=== PATIENT | male | born 1970 | race Caucasian/White ===

== ENCOUNTER → 2018-11-28 | Outpatient (CLI) | payer OTHER ==
[~2018-11-28] MED LIST: ATOR40TA75 PO; GLIP10TA PO; IBUP-1022 PO; LISI-538 PO; METF500T13 PO; OMEP40CA2 PO; PARO40TA2 PO
--- NOTE | 2018-11-28 17:16 | REP ---
LEFT FOOT, FOUR VIEWS:HISTORY: Injury. There is no acute fracture or dislocation. The joint spaces are normal in appearance. IMPRESSION:There is no acute fracture or dislocation. Electronically Signed by Simone Gillespie MD 11/28/2018 05:26 P
--- NOTE | 2018-11-28 17:17 | REP ---
LEFT ANKLE, FIVE VIEWS: HISTORY: Injury. There is no acute fracture or dislocation. The joint space is normal in appearance. An osteophyte is present on the posterior calcaneus. IMPRESSION:There is no acute fracture or dislocation. Electronically Signed by Simone Gillespie MD 11/28/2018 05:26 P
== END ==
LOC: M LRY 15:41
PROVIDERS: ATTEND Nurse Practitioner Family
DX: M25.572 Pain in left ankle and joints of left foot (principal)

== ENCOUNTER 2020-01-09 16:12 | Inpatient (IN) | payer OTHER ==
[~2020-01-09] VITALS: Ht 172.7 cm; Wt 89.4 kg
[~2020-01-09 16:12] MED LIST changes: -GEMF600T5 PO; -GLIP5TAB8 PO; -INSULANT SC; -KEFL500C17 PO; -METF-838 PO; -OMEP-218 PO; -PERCOCET PO
[2020-01-09] MEDS ORDERED: INSULANT SC (16:20)
[2020-01-09] MEDS ORDERED: MORPHINE 10 MG/ML 1ML VIAL (J2270) IM ONE (16:45)
[2020-01-09 17:14] LABS: BASO % 0.4 % (0.0-1.0); EOS # 0.2 10^3/uL (0.0-0.5); EOS % 2.2 % (0.0-3.0); HEMATOCRIT 36.3 % (42.0-52.0); HEMOGLOBIN 12.2 g/dl (13.5-17.5); LYMPH # 1.7 10^3/uL (1.5-5.0); LYMPH % 16.7 % (24.0-44.0); MEAN CORPUSCULAR HEMOGLOBIN 28.5 pg (27.0-33.0); MEAN CORPUSCULAR HGB CONC 33.6 g/dl (32.0-36.5); MEAN CORPUSCULAR VOLUME 84.8 fl (80.0-96.0); MONO # 0.7 10^3/uL (0.0-0.8); MONO % 7.1 % (0.0-5.0); NEUTROPHILS # 7.2 10^3/uL (1.5-8.5); PLATELET COUNT, AUTOMATED 355 10^3/uL (150-450); RED BLOOD COUNT 4.28 10^6/uL (4.30-6.10); WHITE BLOOD COUNT 9.9 10^3/uL (4.0-10.0)
[2020-01-09] MEDS ORDERED: ceFAZolin SOD 2 GM in IV 1 EA IV ONE (17:30)
[2020-01-09] MEDS ORDERED: METF-838 PO (17:35)
[2020-01-09] MEDS ORDERED: OMEP-218 PO (17:35)
[2020-01-09] MEDS ORDERED: GEMF600T5 PO (17:35)
[2020-01-09] MEDS ORDERED: GLIP5TAB8 PO (17:35)
--- NOTE | 2020-01-09 17:48 | REPVR ---
PROCEDURE INFORMATION: Exam: US Scrotum Exam date and time: 01/09/2020 5:16 PM Age: 49 years old Clinical indication: Scrotum pain; trauma to the right testicle which is pinched between the legs. Additional info: R/O torsion. TECHNIQUE: Imaging protocol: Real-time ultrasound of the scrotum and contents with color Doppler and image documentation. COMPARISON: No relevant prior studies available. FINDINGS: Right testicle: The right testicle measures 5.2 x 1.8 x 3.3 cm. No mass. No torsion. Normal vascular flow. Left testicle: The left testicle measures 5.2 x 2.2 x 3.0 cm. No mass. No torsion. Normal vascular flow. Epididymides: The craniocaudal size of the head of the right epididymis measures 5 mm. The craniocaudal size of the head of the left epididymis measures 11 mm. The left epididymal head contains a small cyst containing echogenic debris measuring 3 x 4 x 3 mm in size. Scrotum: There is an approximate 4 x 3 x 3 cm area of irregularly-shaped low echogenicity which has some inflammatory-type increased vascularity on its margin in the scrotal soft tissues lateral to the right testicle which could be a subacute soft tissue hematoma. IMPRESSION: 1. Both testicles appear normal. No evidence of torsion or intratesticular injury. 2. A small 3 x 4 x 3 mm complex cyst is seen in the head of the left epididymis. 3. There is an approximate 4 x 3 x 3 cm area of irregularly-shaped low echogenicity which has some inflammatory-type increased vascularity on its margin in the scrotal soft tissues lateral to the right testicle which could be a subacute soft tissue hematoma. Electronically signed by: Robert Terrazas On 01/09/2020 17:47:41 PM
[2020-01-09] MEDS ORDERED: MORPHINE 2 MG/ML 1ML VIAL (J2270) IV PRN ×2 (18:00→19:15)
[2020-01-09] MEDS ORDERED: MIDAZOLAM INJ 2MG/2ML VIAL (J2250 PER 1MG) As Ordered ONE (18:25)
[2020-01-09] MEDS ORDERED: dexameTHASONE 4 MG/ML 1ML VIAL (J1100 PER 1MG) As Ordered ONE (18:25)
[2020-01-09] MEDS ORDERED: fentaNYL 100 MCG/2 ML INJECTION (J3010) As Ordered ONE ×2 (18:25→19:50)
[2020-01-09] MEDS ORDERED: propofoL 200 MG/20 ML VIAL As Ordered ONE (18:26)
[2020-01-09] MEDS ORDERED: ONDANSETRON 4MG/2ML VIAL As Ordered ONE (18:26)
[2020-01-09] MEDS ORDERED: PHENYLephrine HCL 500 MCG/5 ML (100MCG/ML) SYRINGE (J2370) As Ordered ONE (18:26)
[2020-01-09] MEDS ORDERED: KETOROLAC 60MG 2ML VIAL As Ordered ONE (18:26)
[2020-01-09] MEDS ORDERED: ePHEDrine SULFATE 25 MG/5 ML(5MG/ML) SYRINGE As Ordered ONE (18:26)
[2020-01-09] MEDS ORDERED: LIDOCAINE 2% 100MG/5ML SDV (FOR ANES.) As Ordered ONE (18:26)
[2020-01-09] MEDS ORDERED: BUPIVACAINE HCL 0.25% 30ML VIAL As Ordered ONE (18:28)
[2020-01-09] MEDS ORDERED: BACITRACIN OINTMENT 30GM TUBE As Ordered ONE (18:28)
[2020-01-09] MEDS ORDERED: GLUCOSE 4GM CHEW TABLET PO PRN (19:15)
[2020-01-09] MEDS ORDERED: DEXTROSE 50% 50 ML SYRINGE IV PRN (19:15)
[2020-01-09] MEDS ORDERED: ONDANSETRON 4MG/2ML VIAL IV PRN ×2 (19:15→21:15)
[2020-01-09] MEDS ORDERED: PERCOCET 5MG/325MG TAB PO PRN ×2 (19:15)
[2020-01-09] MEDS ORDERED: GLUCAGON INJ 1MG VIAL SC PRN (19:15)
[2020-01-09] MEDS: GENTAMICIN 80 MG in IV 1 EA IV SCH (21:09)
[2020-01-09] MEDS ORDERED: HYDROMORPHONE HCL 0.5 MG/ 0.5 ML SYRINGE (J1170 PER 1) IV PRN (21:15)
[2020-01-09] MEDS ORDERED: oxyCODONE 5MG TAB PO PRN (21:15)
[2020-01-09] MEDS ORDERED: LR 1,000 ML IV SCH (21:15)
[2020-01-09] MEDS ORDERED: fentaNYL 100 MCG/2 ML INJECTION (J3010) IV PRN (21:15)
[2020-01-09 22:15] VITALS: BP 110/70
[2020-01-09 22:45] VITALS: BP 108/70
[2020-01-09] MEDS: DOCUSATE SODIUM 100 MG CAP PO SCH (23:13)
[2020-01-09] MEDS: PARoxetine 20 MG TAB PO SCH (23:13)
[2020-01-09] MEDS: lisinopriL 10 MG TAB PO SCH (23:13)
[2020-01-09] MEDS: ATORVASTATIN 20 MG TAB PO SCH (23:13)
[2020-01-09] MEDS: VANCOMYCIN HCL 1,000 MG, VIAL MATE ADAPTER 1 EACH in D5W 250 ML IV SCH (23:14)
[2020-01-09] MEDS: HumaLOG INSULIN (NovoLOG) PER UNIT SC SCH (23:14)
[2020-01-09 23:15] VITALS: BP 108/71
[2020-01-09] MEDS: HEPARIN SOD (PORCINE) 5000UNITS/ML VIAL (J1644 PER 1000UNITS) SC SCH (23:15)
[2020-01-10] VITALS (11 sets, daily range): BP systolic 96–118; BP diastolic 64–72; O2SAT 87
[2020-01-10] MEDS: GENTAMICIN 80 MG in IV 1 EA IV SCH (05:37)
[2020-01-10] MEDS: HEPARIN SOD (PORCINE) 5000UNITS/ML VIAL (J1644 PER 1000UNITS) SC SCH ×3 (05:38→21:36)
[2020-01-10 06:16] LABS: HEMATOCRIT 36.2 % (42.0-52.0); MEAN CORPUSCULAR HEMOGLOBIN 28.2 pg (27.0-33.0); MEAN CORPUSCULAR HGB CONC 33.1 g/dl (32.0-36.5); MEAN CORPUSCULAR VOLUME 85.2 fl (80.0-96.0); PLATELET COUNT, AUTOMATED 348 10^3/uL (150-450); RED BLOOD COUNT 4.25 10^6/uL (4.30-6.10); WHITE BLOOD COUNT 13.9 10^3/uL (4.0-10.0)
[2020-01-10 06:41] LABS: BLOOD UREA NITROGEN 20 MG/DL (7-18); CALCIUM LEVEL 8.9 MG/DL (8.5-10.1); CARBON DIOXIDE LEVEL 23 MEQ/L (21-32); CHLORIDE LEVEL 104 MEQ/L (98-107); CREATININE FOR GFR 1.18 MG/DL (0.70-1.30); GLOMERULAR FILTRATION RATE > 60.0 (>60); GLUCOSE, FASTING 328 MG/DL (70-100); POTASSIUM SERUM 4.7 MEQ/L (3.5-5.1); SODIUM LEVEL 136 MEQ/L (136-145)
[2020-01-10] MEDS: HumaLOG INSULIN (NovoLOG) PER UNIT SC SCH ×4 (08:09→20:39)
[2020-01-10] MEDS: OMEPRAZOLE 20 MG CAP PO SCH (08:09)
[2020-01-10] MEDS: gemfibroziL 600 MG TAB PO SCH ×2 (08:09→17:17)
[2020-01-10] MEDS: DOCUSATE SODIUM 100 MG CAP PO SCH ×2 (08:09→21:35)
--- NOTE | 2020-01-10 09:20 | IPNPDOC ---
Subjective Review oF Systems Chief Complaint The patient is a 49-year-old male admitted with a reason for visit of Scrotal Hematoma. Events since Last Encounter No acute events o/n. Patient notes his pain is significantly improved compared to preop. He ambulated earlier w/o difficulty. No f/c/ns. Objective Physical Examination General Exam: Alert, Cooperative, No Acute Distress Neuro Exam: Normal Speech Psych Exam: Mental status NL, Mood NL Other physical findings right hemiscrotum w/ moderate edema and erythema - both improving; incision w/ christy drains in place and moderate serous drainage onto dressing o/n; mild tenderness to palpation; no crepitus Vital Signs/I&O Vital Signs Date Time Temp Pulse Resp B/P (MAP) Pulse Ox O2 Delivery O2 Flow Rate FiO2 01/10/20 06:00 97.5 70 18 98/67 (77) 94 Nasal Cannula 4.0 I&O- Last 24 Hours up to 6 AM 01/10/20 06:00 Intake Total 1505 ml Output Total 10 ml Balance 1495 ml Laboratory Data Labs 24H Laboratory Tests 2 01/09/20 16:46: Immature Granulocyte % (Auto) 0.6, Neutrophils (%) (Auto) 73.0H, Lymphocytes (%) (Auto) 16.7L, Monocytes (%) (Auto) 7.1H, Eosinophils (%) (Auto) 2.2, Basophils (%) (Auto) 0.4, Neutrophils # (Auto) 7.2, Lymphocytes # (Auto) 1.7, Monocytes # (Auto) 0.7, Eosinophils # (Auto) 0.2, Basophils # (Auto) 0.0, Nucleated Red Blood Cells % (auto) 0.0 01/09/20 16:51: POC Prothrombin Time (Misc) 15.6H, POC INR (Misc) 1.3 01/09/20 16:53: POC Glucose (Misc Panel) 191H, POC Sodium (Misc Panel) 139, POC Potassium (Misc Panel) 3.9, POC Chloride (Misc Panel) 102, POC Total CO2 (Misc Panel) 24.0, POC Blood Urea Nitrogen (Misc Panel 21, POC Ionized Calcium (Misc Panel) 4.7, POC Creatinine (Misc Panel) 1.1, POC Hematocrit (Misc Panel) 36.0L 01/09/20 16:55: POC Lactate (Misc Panel) 0.89 01/09/20 20:44: Bedside Glucose (Misc Panel) 122H 01/09/20 22:11: Bedside Glucose (Misc Panel) 182H 01/10/20 05:47: Nucleated Red Blood Cells % (auto) 0.0, Anion Gap 9, Glomerular Filtration Rate > 60.0, Calcium Level 8.9 CBC/BMP Laboratory Tests 01/09/20 16:46 01/10/20 05:47 FSBS Laboratory Tests Test 01/09/20 20:44 01/09/20 22:11 Range/Units Bedside Glucose (Misc Panel) 122 182 70-105 MG/DL Microbiology Microbiology 01/09/20 Respiratory Virus Panel (PCR) ([facility]) - Final, Complete 01/09/20 Gram Stain, Received Pending 01/09/20 Wound Culture, Received Pending 01/09/20 Anaerobic Culture, Received Pending Assessment/Plan Date Seen The patient was seen on 01/10/20. Patient Summary This is a 49 y/o M POD1 s/p R scrotal exploration, incision and drainage of scrotal abscess. He is doing well. Plan/VTE VTE Prophylaxis Ordered?: Yes VTE Exclusion Mechanical Proph: N/A:VTE Prophy Ordered VTE Exclusion Pharmacological: N/A:VTE Prophy Ordered Plan - cont vanc and gent for now - will f/u cult results and adjust abx accordingly - change dressings daily w/ kerlex over the incision - patient may shower - percocet prn pain - cont home meds - SSI - SQH - incentive spirometry - ambulate as tolerated - SCDs when in bed - consistent carbohydrates diet - anticipate discharge in 1-2 days AALIYAH FRANCO MD Jan 10, 2020 09:20
[2020-01-10] MEDS: VANCOMYCIN HCL 1,000 MG, VIAL MATE ADAPTER 1 EACH in D5W 250 ML IV SCH (10:10)
[2020-01-10] MEDS: ceFAZolin SOD 1 GM in D5W MINI-BAG PLUS 50 ML IV SCH ×2 (13:13→21:36)
[2020-01-10] MEDS: ACETAMINOPHEN TAB 650MG DOSE (2X325MG) PO PRN ×2 (17:17→21:36)
[2020-01-10] MEDS: lisinopriL 10 MG TAB PO SCH (21:35)
[2020-01-10] MEDS: PARoxetine 20 MG TAB PO SCH (21:35)
[2020-01-10] MEDS: ATORVASTATIN 20 MG TAB PO SCH (21:36)
[2020-01-11 00:59] VITALS: O2SAT 87
[2020-01-11 02:00] VITALS: BP 117/73
[2020-01-11] MEDS: HEPARIN SOD (PORCINE) 5000UNITS/ML VIAL (J1644 PER 1000UNITS) SC SCH (05:18)
[2020-01-11] MEDS: ceFAZolin SOD 1 GM in D5W MINI-BAG PLUS 50 ML IV SCH (05:18)
[2020-01-11 06:00] VITALS: BP 115/74
[2020-01-11 07:05] LABS: HEMATOCRIT 34.3 % (42.0-52.0); HEMOGLOBIN 11.4 g/dl (13.5-17.5); MEAN CORPUSCULAR HEMOGLOBIN 28.4 pg (27.0-33.0); MEAN CORPUSCULAR HGB CONC 33.2 g/dl (32.0-36.5); MEAN CORPUSCULAR VOLUME 85.3 fl (80.0-96.0); PLATELET COUNT, AUTOMATED 335 10^3/uL (150-450); RED BLOOD COUNT 4.02 10^6/uL (4.30-6.10); WHITE BLOOD COUNT 6.7 10^3/uL (4.0-10.0)
[2020-01-11 07:30] LABS: BLOOD UREA NITROGEN 18 MG/DL (7-18); CALCIUM LEVEL 8.7 MG/DL (8.5-10.1); CARBON DIOXIDE LEVEL 29 MEQ/L (21-32); CHLORIDE LEVEL 106 MEQ/L (98-107); CREATININE FOR GFR 1.25 MG/DL (0.70-1.30); GLOMERULAR FILTRATION RATE > 60.0 (>60); GLUCOSE, FASTING 257 MG/DL (70-100); POTASSIUM SERUM 4.3 MEQ/L (3.5-5.1); SODIUM LEVEL 137 MEQ/L (136-145)
[2020-01-11] MEDS: OMEPRAZOLE 20 MG CAP PO SCH (07:59)
[2020-01-11] MEDS: DOCUSATE SODIUM 100 MG CAP PO SCH (07:59)
[2020-01-11] MEDS: HumaLOG INSULIN (NovoLOG) PER UNIT SC SCH (07:59)
[2020-01-11] MEDS: gemfibroziL 600 MG TAB PO SCH (07:59)
--- NOTE | 2020-01-11 08:31 | IPNPDOC ---
Subjective Review oF Systems Chief Complaint The patient is a 49-year-old male admitted with a reason for visit of Scrotal Hematoma. Events since Last Encounter No acute events o/n. Good pain control. No n/v. No difficulty voiding. No f/c/ns. Objective Physical Examination General Exam: Alert, Cooperative, No Acute Distress Neuro Exam: Normal Speech Psych Exam: Mental status NL, Mood NL Other physical findings R hemiscrotum w/ mild edema; no erythema; no skin changes; mild tenderness; christy drains in place w/ small amount of serous output on dressings Vital Signs/I&O Vital Signs Date Time Temp Pulse Resp B/P (MAP) Pulse Ox O2 Delivery O2 Flow Rate FiO2 01/11/20 06:00 98.3 69 18 115/74 (88) 94 Nasal Cannula 4.0 I&O- Last 24 Hours up to 6 AM 01/11/20 06:00 Intake Total 2780 ml Output Total 2150 ml Balance 630 ml Laboratory Data Labs 24H Laboratory Tests 2 01/10/20 11:49: Bedside Glucose (Misc Panel) 228H 01/10/20 16:54: Bedside Glucose (Misc Panel) 202H 01/10/20 20:38: Bedside Glucose (Misc Panel) 217H 01/11/20 06:51: Nucleated Red Blood Cells % (auto) 0.0, Anion Gap 2L, Glomerular Filtration Rate > 60.0, Calcium Level 8.7 CBC/BMP Laboratory Tests 01/11/20 06:51 FSBS Laboratory Tests Test 01/10/20 11:49 01/10/20 16:54 01/10/20 20:38 Range/Units Bedside Glucose (Misc Panel) 228 202 217 70-105 MG/DL Microbiology Microbiology 01/09/20 Respiratory Virus Panel (PCR) ([facility]) - Final, Complete 01/09/20 Gram Stain - Final, Resulted 01/09/20 Wound Culture - Preliminary, Resulted Strep Agalactiae Group B 01/09/20 Anaerobic Culture, Resulted Pending Assessment/Plan Date Seen The patient was seen on 01/11/20. Patient Summary This is a 49 y/o M POD2 s/p R scrotal exploration, incision and drainage of scrotal abscess. The patient is doing well. His WBC has normalized. Group B strep grew on culture. Plan/VTE VTE Prophylaxis Ordered?: Yes VTE Exclusion Mechanical Proph: N/A:VTE Prophy Ordered VTE Exclusion Pharmacological: N/A:VTE Prophy Ordered Plan - cont dressing changes at least once daily - currently on ancef - cont home meds - percocet prn pain - ambulate - incentive spirometry - SCDs when in bed - SQH - consistent carbohydrate diet - discharge home today on keflex - f/u in office next wk AALIYAH FRANCO MD Jan 11, 2020 08:31
[2020-01-11] MEDS ORDERED: KEFL500C17 PO (08:53)
[2020-01-11] MEDS ORDERED: PERCOCET PO (08:53)
[2020-01-11 09:00] VITALS: O2SAT 90
--- NOTE | 2020-01-12 14:59 | RO ---
DATE OF PROCEDURE: 01/09/2020 PREPROCEDURE DIAGNOSIS: Right scrotal abscess. POSTPROCEDURE DIAGNOSIS: Right scrotal abscess. OPERATIVE PROCEDURE: Right scrotal exploration, incision and drainage of a scrotal abscess. SURGEON: Callum Deleon MD [employer] OPERATOR: None. ANESTHESIA: General. OPERATIVE INDICATIONS: This is a 49-year-old male who has been having worsening right scrotal swelling and pain, as well as fevers. Ultrasound done in the emergency room was notable for a fluid collection adjacent to right testicle. He was brought to the operating room today for treatment. DESCRIPTION OF PROCEDURE: The patient was brought to the operating room and general anesthesia induced. Prophylactic antibiotics were then infused. The patient was then placed in supine position, prepped and draped in the usual sterile fashion. At this point, an approximately 4-5 cm transverse incision was made over the right hemiscrotum in the area where most of the tissue swelling was noted. Once the incision was made, the patient immediately had drainage of a large amount of pus. Cultures were obtained from the abscess to be sent. Once the incision was completely made and all the pus was drained, we then probed the inside of the right hemiscrotum. Of note, the testicle was very adhered to the anterior scrotal wall. Loculations inside the right hemiscrotum were broken up to ensure that there were no residual abscess cavities. Once the loculations were broken up and the testicle was freed from the scrotal wall, the right hemiscrotum was thoroughly washed out with normal saline. I then also opened the tunica vaginalis and a small amount of clear fluid drained. The testicle was delivered outside tunica vaginalis and was carefully examined. The testicle did appear healthy. There did not appear to be any injury to the right testicle. Once done, I irrigated the testicle and the right hemiscrotum. Any areas of significant bleeding were controlled with electrocautery. Once done, hemostasis appeared to be very good. The right testicle was then delivered back inside the right hemiscrotum in its normal anatomic position. At this point, I placed two [place] drains with one of them tucked in the dependent portion of the right hemiscrotum and the other one was tucked in upper right hemiscrotum where the main abscess cavity was. Both these drains were secured to the skin using #2-0 nylon suture. The right hemiscrotum was then reapproximated with interrupted #0 Vicryl suture. Dressing were then applied, and this marked conclusion of procedure. The patient was then awakened from anesthesia and transported to the recovery room in stable condition. ESTIMATED BLOOD LOSS: 10 mL. COMPLICATIONS: None. SPECIMENS: Cultures from right scrotal abscess. PLAN: The patient will be admitted to the hospital and monitored. If his pain controlled and he feels well, he will potentially discharge home tomorrow or the day afterwards. He will need to be kept on antibiotics for at least 10 days. TAMAR
--- NOTE | 2020-01-13 19:09 | DSES ---
DATE OF ADMISSION: 01/09/2020 DATE OF DISCHARGE: 01/11/2020 ADMISSION DIAGNOSIS: Scrotal abscess. DISCHARGE DIAGNOSIS: Scrotal abscess. ADMITTING PHYSICIAN: Callum Deleon M.D. DISCHARGE PHYSICIAN: Callum Deleon M.D. PROCEDURES PERFORMED: Right scrotal exploration with incision and drainage of scrotal abscess on 01/09/2020. HISTORY OF PRESENT ILLNESS: This is a 49-year-old male who presented to urology clinic on 01/09/2020 with severe and worsening right-sided scrotal pain and swelling for about 2 weeks. He was immediately sent to the emergency room (ER) where an ultrasound confirmed a moderate-sized fluid collection deep to the skin. He was taken to the operating room that night and admitted postoperatively. HOSPITALIZATION COURSE: The patient was admitted to the hospital after undergoing the above-listed procedure. His postoperative course was unremarkable. Immediately following surgery, the patient noted a drastic improvement in his pain. He no longer had fevers. On postoperative day #1, he was tolerating a regular diet and his white blood cell count did go up to 13,000. This came down to a normal level on postoperative day #2. Cultures obtained intraoperatively grew Group B Streptococcus. Therefore, his antibiotics were changed from vancomycin and gentamicin to cefazolin. While on cefazolin, he continued to demonstrate improvement and by postoperative day #2, he had very good pain control. He was ambulating well without difficulty. He was voiding well. He was tolerating a regular diet. On exam, he continued to have mild edema on the right scrotum, but this was expected. There was no sign of worsening infection. He was therefore deemed ready for discharge home on postoperative day #2. He was discharged home with two [place] drains still in place with plan for him to followup in the urology clinic on Wednesday for an exam and likely drain removal. He was advised on wound care. He was discharged home with pain medication as well as oral antibiotics which he will be on for approximately 10 more days. TAMAR
== END 2020-01-11 11:28 | disposition home or self-care (01) | DRG 718 ==
LOC: M ED 16:12 → M SDC 18:08 → M MS5PR 22:05 → M SDC 01-10 09:12 → M MS5PR 01-10 09:13
PROVIDERS: ADMIT Urology; ATTEND Urology
PROC: 0V950ZZ Drainage of Scrotum, Open Approach (ICD-10-PCS; principal; 2020-01-09 19:00)
DX: N49.2 Inflammatory disorders of scrotum (principal); Z11.59 Encounter for screening for other viral diseases; K21.9 Gastro-esophageal reflux disease without esophagitis; J45.909 Unspecified asthma, uncomplicated; E11.9 Type 2 diabetes mellitus without complications; Z79.4 Long term (current) use of insulin; Z79.899 Other long term (current) drug therapy

== ENCOUNTER → 2020-01-09 | Outpatient (REF) | payer OTHER ==
[~2020-01-09] MED LIST changes: +GEMF600T5 PO; +GLIP5TAB8 PO; +INSULANT SC; +KEFL500C17 PO; +METF-838 PO; +OMEP-218 PO; -OMEP40CA2 PO; +OMEP40CA97 PO; +PERCOCET PO
[2020-01-10 15:37] LABS: APPEARANCE, URINE CLEAR (CLEAR); BACTERIA, URINE AUTO NEGATIVE (NEGATIVE); BILIRUBIN, URINE AUTO NEGATIVE (NEGATIVE); BLOOD, URINE BLOOD NEGATIVE (NEGATIVE); COLOR, URINE YELLOW (YELLOW); GLUCOSE, URINE (UA) AUTO 3+ mg/dL (NEGATIVE); KETONE, URINE AUTO NEGATIVE (NEGATIVE); LEUKOCYTE ESTERASE, URINE AUTO NEGATIVE (NEGATIVE); NITRITE, URINE AUTO NEGATIVE (NEGATIVE); PROTEIN, URINE AUTO NEGATIVE (NEGATIVE); RBC, URINE AUTO 0 /HPF (0-3); SPECIFIC GRAVITY URINE AUTO 1.016 (1.002-1.035); SQUAMOUS EPITHELIAL CELL UR AU 0 /HPF (0-6); UROBILINOGEN, URINE AUTO 0.2 mg/dL (0.0-2.0); WBC, URINE AUTO 0 /HPF (0-3)
== END ==
LOC: M SMT 14:52
PROVIDERS: ATTEND Nurse Practitioner Women's Health
DX: N50.819 Testicular pain, unspecified (principal)

== ENCOUNTER → 2020-07-04 | Outpatient (REF) | payer OTHER ==
[~2020-07-04] MED LIST changes: +GEMF600T5 PO; +GLIP5TAB8 PO; +INSULANT SC; +KEFL500C17 PO; +METF-838 PO; +OMEP-218 PO; +PERCOCET PO
== END ==
LOC: M LAB REF 14:48
PROVIDERS: ATTEND Physician Assistant
DX: Z11.59 Encounter for screening for other viral diseases (principal)

== ENCOUNTER 2022-04-01 20:34 | Emergency (ER) | payer OTHER ==
[~2022-04-01] VITALS: Ht 175.3 cm; Wt 88.3 kg
[~2022-04-01 20:34] MED LIST changes: -LISI-538 PO; +LISI20TA33 PO; +OMEP-173 PO; -OMEP-218 PO; +OMEP40CA4 PO; -OMEP40CA97 PO
[2022-04-01] MEDS ORDERED: TENECTEPLASE 50 MG KIT (TNKase) (J3101 PER 1MG) As Ordered ONE (20:43)
[2022-04-01] MEDS ORDERED: NITROGLYCERIN 0.4 MG SUBL TABLET SL PRN (20:45)
[2022-04-01] MEDS ORDERED: HEPARIN DRIP 25,000 UNITS in IV 1 EA IV SCH (20:45)
[2022-04-01] MEDS ORDERED: HEPARIN SOD (PORCINE) 5000UNITS/ML 1ML VIAL/SYRINGE IV ONE (20:45)
[2022-04-01] MEDS ORDERED: TENECTEPLASE 50 MG KIT (TNKase) (J3101 PER 1MG) IV ONE (20:45)
[2022-04-01] MEDS ORDERED: CLOPIDOGREL 300 MG TAB (PLAVIX) PO STA (20:49)
[2022-04-01] MEDS ORDERED: CLOPIDOGREL 300 MG TAB (PLAVIX) As Ordered ONE (20:52)
[2022-04-01 20:55] VITALS: BP 136/86
[2022-04-01 21:08] VITALS: BP 142/78
[2022-04-01 21:09] LABS: BASO # 0.1 10^3/uL (0.0-0.2); BASO % 0.6 % (0.0-1.0); EOS # 0.1 10^3/uL (0.0-0.5); EOS % 0.4 % (0.0-3.0); HEMATOCRIT 45.7 % (42.0-52.0); HEMOGLOBIN 15.6 g/dl (13.5-17.5); LYMPH # 2.1 10^3/uL (1.5-5.0); LYMPH % 17.5 % (24.0-44.0); MEAN CORPUSCULAR HEMOGLOBIN 27.5 pg (27.0-33.0); MEAN CORPUSCULAR HGB CONC 34.1 g/dl (32.0-36.5); MEAN CORPUSCULAR VOLUME 80.6 fl (80.0-96.0); MONO # 0.8 10^3/uL (0.0-0.8); MONO % 6.4 % (2.0-8.0); NEUTROPHILS # 8.7 10^3/uL (1.5-8.5); NEUTROPHILS % 74.5 % (36.0-66.0); PLATELET COUNT, AUTOMATED 256 10^3/uL (150-450); RED BLOOD COUNT 5.67 10^6/uL (4.30-6.10); WHITE BLOOD COUNT 11.7 10^3/uL (4.0-10.0)
[2022-04-01 21:20] LABS: INR 0.88; PROTHROMBIN TIME 12.3 SECONDS (12.7-14.5)
[2022-04-01 21:41] LABS: RSV AMPLIFICATION NEGATIVE (NEGATIVE)
[2022-04-01 21:44] LABS: BLOOD UREA NITROGEN 12 MG/DL (7-18); CALCIUM LEVEL 9.7 MG/DL (8.5-10.1); CARBON DIOXIDE LEVEL 20 MEQ/L (21-32); CHLORIDE LEVEL 98 MEQ/L (98-107); CREATININE FOR GFR 1.33 MG/DL (0.70-1.30); GLOMERULAR FILTRATION RATE > 60.0 (>56); GLUCOSE, FASTING 361 MG/DL (70-100); NT-PRO BNP 104 PG/ML (<125); POTASSIUM SERUM 3.9 MEQ/L (3.5-5.1); SODIUM LEVEL 133 MEQ/L (136-145)
[2022-04-01 21:50] LABS: MB/CK RELATIVE INDEX 4.71 (< OR =4)
== END 2022-04-01 21:10 | disposition short-term general hospital (02) ==
LOC: M ED 20:34 → EDBD 20:34 → M ED 21:10
DX: I21.3 ST elevation (STEMI) myocardial infarction of unspecified site (principal); I10 Essential (primary) hypertension; E11.9 Type 2 diabetes mellitus without complications; G47.33 Obstructive sleep apnea (adult) (pediatric)
CPT/HCPCS: 71045; 80048; 82550; 82553; 83880; 84484; 85025; 85610; 85730; 87631; 93005; 93041; 94760; 96375; 99285; J1644; J3101